=== PATIENT | male | born 1950 | race Caucasian/White ===

== ENCOUNTER 2020-04-23 21:12 | Inpatient (IN) | payer MEDICARE, BC, OTHER ==
[~2020-04-23 21:12] MED LIST: Iopamidol-370 76% 500 ML 1 ML ONE
[2020-04-23 21:29] LABS: #Eosinphils 0.1 thou/uL (0.0-0.7); #Lymphocytes 1.6 thou/uL (1.20-3.40); #Monocytes 0.9 thou/uL (0.11-0.59); #Neutrophils 14.1 thou/uL (1.40-6.50); %Basophils 0.1 % (0.0-1.0); %Eosinophils 0.4 % (0.0-10.0); %Lymphocytes 9.5 % (21.0-51.0); %Monocytes 5.4 % (0.0-10.0); %Neutrophils 84.6 % (42.0-75.0); Hemoglobin 14.9 g/dL (14.0-18.0); Mean Corpuscular HGB CONC 33.3 g/dL (32.0-36.0); Mean Platelet Volume 7.4 fL (7.4-10.4); Platelet Count 313 thou/uL (130-400); RBC Distribution Width 12.8 % (11.5-14.5); Red Blood Cell (RBC) Count 4.98 mill/uL (4.70-6.10); White Blood Cell (WBC) Count 16.6 thou/uL (4.8-10.8)
--- NOTE | 2020-04-23 21:47 | RAD ---
PORTABLE CHEST: 04/23/20 PROVIDED CLINICAL HISTORY: Chest pain. FINDINGS: No comparisons. Cardiac silhouette appears prominent, which may be at least partially on the basis of portable techni que. No focal consolidation, pleural fluid or pneumothorax apparent. IMPRESSION: No evidence for an acute cardiopulmonary process. POS: JUANY
[2020-04-23 21:49] LABS: ALT (SGPT) 61 U/L (8-55); AST (SGOT) 90 U/L (5-34); Albumin 4.4 g/dL (3.4-4.8); Alkaline Phosphatase 92 U/L (40-110); Anion Gap 21 mmol/L (10-20); BUN (Urea Nitrogen) 14 mg/dL (8.4-25.7); Bilirubin, Total 1.1 mg/dL (0.2-1.2); Calc. Creatinine Clearance 0 mL/min (70-130); Calcium 8.7 mg/dL (7.8-10.44); Carbon Dioxide 19 mmol/L (23-31); Chloride 103 mmol/L (98-107); Estimated GFR-MDRD 57; Globulin 2.9 g/dL (2.4-3.5); Glucose 202 mg/dL (80-115); Protein, Total 7.3 g/dL (5.8-8.1); Sodium 139 mmol/L (136-145)
[2020-04-23] MEDS ORDERED: Morphine 4 MG/ML VIAL ONE (23:42)
[2020-04-24] MEDS ORDERED: Piperacillin/Tazobactam 4.5 GM VIAL ONE (01:14)
[2020-04-24 01:20] LABS: Troponin I 0.018 ng/mL (< 0.028)
[2020-04-24 03:28] VITALS: BMI 38.8
[2020-04-24] MEDS ORDERED: Ondansetron PF 4 MG/2 ML Vial IVP PRN ×2 (03:34→10:06)
[2020-04-24] MEDS ORDERED: Ondansetron ODT 4 MG TAB SL PRN (03:34)
[2020-04-24] MEDS ORDERED: Morphine 4 MG/ML VIAL SLOW IVP PRN (03:35)
[2020-04-24] MEDS: Sodium Chloride 0.9% 1,000 ML IV SCH ×2 (03:51→12:01)
[2020-04-24 04:54] LABS: Troponin I 0.033 ng/mL (< 0.028)
--- NOTE | 2020-04-24 07:27 | CT ---
CT ANGIOGRAM CHEST AND ABDOMEN WITH IV CONTRAST AND 3D MIP RECONSTRUCTIONS: Date: 04/23/2020 PROVIDED CLINICAL HISTORY: Chest and back pain. FINDINGS: The heart, pericardium, and great vessels demonstrate an unremarkable CT appearance. There is no evid ence for aortic dissection. The pulmonary arterial system appears normally opacified proximally. The lungs are free of significant opacity. The lung apices are not included. There are nonobstructing calculi involving the left kidney, largest measuring about 4.0 mm in the mid portion. There is moderate gallbladder distention without overt pericholecystic inflammatory change. The visualized portions of the appendix appear normal. There is no bowel dilatation, inflammatory fa t stranding, free fluid, or free air apparent within the abdomen. The abdominal aorta is nonaneurysma l. The renal and mesenteric vessels appear normally opacified. The osseous structures demonstrate no concerning lytic or blastic lesions. IMPRESSION: 1. No evidence for aortic dissection. 2. Moderate gallbladder distention without overt pericholecystic inflammatory change. 3. Nonobstructing left renal calculi. POS: JUANY
[2020-04-24] MEDS ORDERED: Piperacillin/Tazobactam 3.375 GM in Sodium Chloride 0.9% 100 ML IVPB SCH (08:00)
--- NOTE | 2020-04-24 08:34 | ULT ---
PRELIMINARY REPORT/[facility]/EMERGENCY AFTER HOURS PROCEDURE Receipt of this report by the clinical staff was confirmed with Dr. Paris MD by Loiuse Olson on A 2019 01:20:00 CDT. Addendum electronically signed by Louise Olson on April 24, 2020 1:20:44 AM CDT EXAM: US Abdomen Limited, Right Upper Quadrant. CLINICAL HISTORY: HX: ABD PAIN. SEE NOTES ON LAST IMAGE. THANKS TECHNIQUE: Real-time ultrasound of the right upper quadrant with image documentation. COMPARISON: None provided. FINDINGS: LIVER: Demonstrates increased echogenicity however is poorly visualized. GALLBLADDER: Cholelithiasis and sludge is noted with wall thickening at 7 mm along with pericholecystic fluid. Th e patient demonstrated a positive sonographic Rivers's sign COMMON BILE DUCT: No dilation. Measures 4.1 mm PANCREAS: Obscured by overlying bowel gas. RIGHT KIDNEY: No hydronephrosis. Measures 10.7 cm and demonstrates trace perinephric fluid IMPRESSION: The findings are consistent with acute cholecystitis ELECTRONICALLY SIGNED BY: Juan Geronimo MD Apr 24, 2020 1:12:08 AM CDT This report is intended for review by the ordering physician only, in accordance of law. If you recei ve this report in error, please call [facility] at [phone]. FINAL REPORT EXAM: US Gallbladder RUQ CLINICAL HISTORY: Epigastric pain. Elevated transaminases.. COMPARISON: None. FINDINGS: Pancreas: Obscured by bowel gas Liver:Heterogeneous echotexture which limits evaluation for hepatic masses and intrahepatic biliary d ilatation. Gallbladder: Cholelithiasis and sludge. Pericholecystic fluid. Gallbladder wall thickening. Rivers's sign:Positive Portal Vein: Patent. Appropriate directional flow Bile ducts: 0.4 cm common bile duct diameter Right kidney: No hydronephrosis. There is right renal cortical thinning. Right kidney measures 10.8 c m in length. IMPRESSION: 1. Sonographic evidence of cholelithiasis with sonographic evidence of acute cholecystitis. 2. Heterogeneous echotexture of liver likely due to hepatic steatosis or hepatocellular disease. This report is in agreement with initial report by [facility]. Transcribed Date/Time: 04/24/2020 8:57 AM
[2020-04-24] MEDS ORDERED: Morphine 2 MG/ML VIAL SLOW IVP PRN (10:06)
[2020-04-24 13:47] LABS: SARS-CoV-2 MS2 Positive; SARS-CoV-2 N Gene Negative; SARS-CoV-2 S Gene Negative; SARS-CoV-2 by NAA Not Detected (NotDetected); SARS-CoV-2 orf1ab Negative
[2020-04-24] MEDS: Piperacillin/Tazobactam 3.375 GM in Sodium Chloride 0.9% 100 ML IVPB SCH ×2 (14:44→20:44)
[2020-04-24] MEDS ORDERED: hydrALAZINE 20 MG/ML VIAL SLOW IVP PRN (15:10)
[2020-04-24 16:44] LABS: Hemoglobin A1c 6.4 % (4.0-6.0)
[2020-04-24] MEDS: Carvedilol 3.125 MG TAB PO SCH (17:26)
[2020-04-24 18:35] LABS: Troponin I 0.028 ng/mL (< 0.028)
[2020-04-24] MEDS: D5 1/2 NS w/20 mEq KCL 1,000 ML IV SCH (20:43)
[2020-04-24] MEDS: Atorvastatin Calcium 40 MG TAB PO SCH (20:43)
--- NOTE | 2020-04-24 20:44 | CON ---
DATE OF CONSULTATION: 04/24/2020 PRIMARY CARE PHYSICIAN: The patient currently does not have a primary care physician. REASON FOR ADMISSION: Biliary colic and acute cholecystitis. REASON FOR CONSULTATION: Elevated troponin. HISTORY OF PRESENT ILLNESS: Mr. Huddleston is a pleasant 69-year-old gentleman, who has a history of hypertension, elevated cholesterol, and hypothyroidism. He was in his usual state of health until last night. He was lying down watching TV, when he suddenly got a pain or pressure in the epigastric region and radiated across. He does not know if there is any associated symptoms because he says he gets sweaty a lot, but he did have some nausea and vomiting as well. He came to the ER for evaluation, where it was felt that his symptoms were related to possible gallbladder disease. A CT of the chest was done to rule out dissection and an abdominal ultrasound that had findings suggestive of cholecystitis. He is being admitted to the Surgery Service and we were consulted to evaluate an elevated troponin that he had. The patient denies any chest pain. He says that he is relatively active and does not have any dyspnea or shortness of breath. He denies any PND, no orthopnea, no lower extremity edema, except when he is working. But, he has not had routine medical care and he has never had an evaluation for his heart. REVIEW OF SYSTEMS: All systems are reviewed and are negative except for that mentioned in the history of present illness. PAST MEDICAL HISTORY: Significant for hypertension, elevated cholesterol, and hypothyroidism. PAST SURGICAL HISTORY: He has had a thyroidectomy in 2008. ALLERGIES: NO KNOWN DRUG ALLERGIES. SOCIAL HISTORY: He is a former smoker, he quit in 1970. He is and has one child. Prior to him quitting smoking, he only smokes a few cigarettes prior to quitting. FAMILY HISTORY: He does not know his father's history well other than cirrhosis. His grandfather had heart disease. USUAL MEDICATIONS: Include; 1. Levothyroxine 125 mcg daily. 2. Lipitor 40 mg daily. 3. Lisinopril 20 mg p.o. daily. PHYSICAL EXAMINATION: GENERAL: He is alert and oriented. He is morbidly obese. VITAL SIGNS: Blood pressure was 186/97, heart rate 77, respiratory rate of 18, temperature is 98.2, and O2 saturation is 95% on room air. HEENT: Pupils are equal, round, and reactive to light. Extraocular muscles are intact. Sclerae anicteric. Throat, no erythema, no exudates. NECK: No adenopathy. No bruits. LUNGS: Clear to auscultation. There is no wheezing. No rales. No rhonchi. CARDIOVASCULAR: He had a normal S1 and S2. There is no S3 or S4. He did have a very faint grade 2/6 short systolic murmur. No radiation. ABDOMEN: Obese. It is soft, nontender, and nondistended. Positive for bowel sounds. No rebound. No guarding. No organomegaly. EXTREMITIES: On his extremities, he has some mild ankle edema. No calf tenderness. No joint effusions. NEUROLOGIC: Nonfocal. SKIN AND INTEGUMENT: No skin changes. No rash. LABORATORY DATA: Lab results were reviewed and these were from 04/23. His glucose was elevated at 202. He had a troponin today that reached 0.033. The white blood cell count was 16.6 on yesterday. Hemoglobin and hematocrit were normal. Rapid COVID screen negative. Chest x-ray and CTA and ultrasound were reviewed. ASSESSMENT: 1. This is a pleasant 69-year-old gentleman, who is being admitted for probable acute cholecystitis. He has been started on antibiotics and IV fluids and since his symptoms have improved. However, it was noted that he did have an elevated troponin. He has a history of hypertension and high cholesterol, and given his age and body habitus, I suspect this place him at a slightly higher cardiac risk as well. For this reason, we will go ahead and get a nuclear stress test prior to him having surgery given that his hip. It appears his gallbladder has cooled down somewhat. Also would like to get an echo to assess the murmur, but he has refused this and almost refuse having the stress test done. I have conveyed this to Dr. Maxwell. 2. Elevated glucose. He could have an undiagnosed diabetes mellitus. We will check a hemoglobin A1c in the a.m. as well as a fasting blood glucose. However, in acute illness, it is very difficult to screen for diabetes and this will likely need to be done as outpatient. 3. History of hypothyroidism. We will go ahead and restart his home medications. 4. Dyslipidemia. We will check a fasting lipid panel in the a.m. Job ID: [id number]
[2020-04-24 21:33] LABS: Troponin I 0.024 ng/mL (< 0.028)
[2020-04-24] MEDS ORDERED: Fluticasone Propionate Nasal Spray 16 gm Bottle NASAL SCH (22:00)
[2020-04-25] MEDS ORDERED: Sodium Chloride 0.65% Nasal 44 ML BOT EA NARE PRN (00:30)
[2020-04-25] MEDS: Piperacillin/Tazobactam 3.375 GM in Sodium Chloride 0.9% 100 ML IVPB SCH ×4 (01:19→22:39)
--- NOTE | 2020-04-25 03:01 | HP ---
CHIEF COMPLAINT: Abdominal pain. HISTORY OF PRESENT ILLNESS: Mr. Huddleston is a 69-year-old man who presented to the emergency room with a several hour history of severe epigastric pain radiating across his upper abdomen and into his chest. He has some mild shortness of breath and several episodes of vomiting and was diaphoretic. He was brought in by EMS. They gave him sublingual nitroglycerin and aspirin with mild improvement in his symptoms en route. He states that he has not had an episode of pain similar to this in the past. By the time I saw him on morning rounds, he states that the pain has resolved. He was unable to identify a triggering event and nothing that he tried at home was helping. The pain did radiate to his back. He did not have any fevers or chills. Workup in the emergency room showed no acute ST changes and low troponins initially, but his third troponin was mildly elevated in the indeterminate range. He was noted to have an elevated white count on admission and mild elevation of AST and ALT and imaging including a CT dissection protocol and abdominal ultrasound showed distention of the gallbladder and gallstones. The patient was admitted and Hospitalist Service was consulted and the decision was made to proceed with risk stratification with stress testing. The patient is currently comfortable without recurrence of his nausea or abdominal or chest pain. PAST MEDICAL HISTORY: Obesity, back pain, hypertension, hypothyroidism, hyperlipidemia, his glucose was elevated on admission and hemoglobin A1c is slightly elevated at 6.4. PAST SURGICAL HISTORY: Thyroidectomy. SOCIAL HISTORY: The patient does not smoke, drink, or use illicit drugs. He has no known drug allergies. OUTPATIENT MEDICATIONS: Include Synthroid, Lipitor, and lisinopril. REVIEW OF SYSTEMS: Ten system review of systems is negative except per HPI. The patient specifically denies shortness of breath, cough, runny nose, or sore throat. PHYSICAL EXAMINATION: VITAL SIGNS: The patient had a low-grade fever overnight, heart rate 77, respirations 18, 95% saturated on room air, and blood pressure 186/97. GENERAL: Reveals an obese gentleman, in no acute distress. HEENT: Unremarkable. Pupils are equal, and extraocular movements are intact. NECK: Supple without lymphadenopathy or thyroid nodules. HEART: Regular in its rate and rhythm without murmurs, rubs, or gallops. LUNGS: Clear to auscultation bilaterally. ABDOMEN: Soft and nondistended. He has mild tenderness to palpation to right upper quadrant, but no rigidity, rebound, or guarding. No palpable masses or hernias. EXTREMITIES: Warm and well perfused without edema. NEURO: No focal deficits. PSYCHIATRIC: Alert, oriented, and appropriate. LABORATORY DATA: White count is elevated at 16,000 with a left shift, hematocrit 44, and platelets 313. Electrolytes are unremarkable. BNP and troponin are mildly elevated. Glucose is elevated at 202. AST and ALT are [address] and ultrasound images are reviewed and I agree with the written report. The patient's gallbladder appears thickened with some pericholecystic edema. He has stones in the gallbladder, but the common bile duct looks normal caliber. ASSESSMENT: Cholelithiasis and choledocholithiasis. The patient appears to have multiple medical problems, which are not well managed and he has an indeterminate troponin with multiple risk factors for coronary artery disease. The hospitalist has recommended risk stratification with stress testing and has been ordered. We will await these results before deciding whether to proceed with laparoscopic cholecystectomy. Currently, he is not septic and fairly comfortable and I will allow clear liquids today and make him n.p.o. tomorrow for anticipated OR. The patient's diagnosis and recommended treatment were discussed with him. He understands and accepts the recommendations and all of his questions were answered including reviewing the images from his CT and ultrasound with him. We did discuss the surgery in detail. Inherent risks of surgery were discussed. These include, but are not limited to, bleeding, infection, risks of anesthesia, damage to nearby structures including bowel, liver, and bile duct, need for additional procedures and need for open surgery. He understands and accepts these risks and wishes to proceed. We will await cardiac clearance, which I anticipate will be back by tomorrow. If he has evidence of reversible ischemia, then of course, Cardiology will be involved as well. In the meantime, we are treating his cholecystitis with Zosyn and beta kelly has been started due to inadequate control of his blood pressure. Job ID: [id number]
[2020-04-25 05:52] LABS: #Eosinphils 0.1 thou/uL (0.0-0.7); #Lymphocytes 1.2 thou/uL (1.20-3.40); #Monocytes 0.8 thou/uL (0.11-0.59); #Neutrophils 6.1 thou/uL (1.40-6.50); %Basophils 0.2 % (0.0-1.0); %Eosinophils 0.9 % (0.0-10.0); %Lymphocytes 14.6 % (21.0-51.0); %Monocytes 9.9 % (0.0-10.0); %Neutrophils 74.4 % (42.0-75.0); Hemoglobin 12.4 g/dL (14.0-18.0); Mean Corpuscular HGB CONC 33.2 g/dL (32.0-36.0); Mean Corpuscular Hemoglobin 30.1 pg (27.0-31.0); Mean Corpuscular Volume 90.6 fL (78.0-98.0); Mean Platelet Volume 7.1 fL (7.4-10.4); Platelet Count 224 thou/uL (130-400); RBC Distribution Width 12.8 % (11.5-14.5); Red Blood Cell (RBC) Count 4.11 mill/uL (4.70-6.10); White Blood Cell (WBC) Count 8.2 thou/uL (4.8-10.8)
[2020-04-25] MEDS: Levothyroxine Sodium 125 MCG TAB PO SCH (06:08)
[2020-04-25] MEDS: Carvedilol 3.125 MG TAB PO SCH ×2 (06:14→17:14)
[2020-04-25] MEDS: D5 1/2 NS w/20 mEq KCL 1,000 ML IV SCH ×3 (06:14→18:52)
[2020-04-25 06:17] LABS: ALT (SGPT) 113 U/L (8-55); AST (SGOT) 74 U/L (5-34); Albumin 3.5 g/dL (3.4-4.8); Alkaline Phosphatase 70 U/L (40-110); Anion Gap 9 mmol/L (10-20); BUN (Urea Nitrogen) 11 mg/dL (8.4-25.7); Bilirubin, Total 1.4 mg/dL (0.2-1.2); Calc. Creatinine Clearance 111 mL/min (70-130); Calcium 7.9 mg/dL (7.8-10.44); Carbon Dioxide 27 mmol/L (23-31); Cardiac Risk 3.5 (Less than 4.5); Chloride 104 mmol/L (98-107); Cholesterol 130 mg/dl (< 200 Desired); Estimated GFR-MDRD 62; Globulin 2.8 g/dL (2.4-3.5); Glucose 145 mg/dL (80-115); HDL Cholesterol 37 mg/dL (>60 Neg Risk); LDL Cholesterol, Calculated 81 mg/dL; Potassium 3.9 mmol/L (3.5-5.1); Protein, Total 6.3 g/dL (5.8-8.1); Sodium 136 mmol/L (136-145); Triglycerides 58 mg/dL (Less than 150)
[2020-04-25 06:48] LABS: Free T4 (Free Thyroxine) 0.91 ng/dL (0.70-1.48); Thyroid Stimulating Hormone 0.2484 uIU/mL (0.35-4.94)
[2020-04-25] MEDS: Fluticasone Propionate Nasal Spray 16 gm Bottle NASAL SCH (10:12)
[2020-04-25] MEDS ORDERED: Glycopyrrolate 0.2 MG/ML 5 ML SYRINGE ONE (10:37)
[2020-04-25] MEDS ORDERED: Lidocaine 1% PF 5 ML VIAL ONE (10:37)
[2020-04-25] MEDS ORDERED: Rocuronium Bromide 10 MG/ML (10ML VIAL) ONE (10:37)
[2020-04-25] MEDS ORDERED: Ketorolac Tromethamine 30 MG/ML VIAL ONE (10:37)
[2020-04-25] MEDS ORDERED: Labetalol HCl 100 MG/20 ML VIAL ONE (10:37)
[2020-04-25] MEDS ORDERED: PROPOFOL 200 MG/20 ML VIAL ONE (10:37)
[2020-04-25] MEDS ORDERED: Dexamethasone 20 MG/5 ML VIAL ONE (10:37)
[2020-04-25] MEDS ORDERED: Ondansetron PF 4 MG/2 ML Vial ONE (10:37)
--- NOTE | 2020-04-25 12:29 | PDOC.GSPN ---
Surgery Progress Note: Subj - Subjective Narrative: Patient refused to go down for his stress test this morning. He says that he is feeling better and not having any nausea or pain and he just wants to have the surgery. I came to talk to him about the stress test and explained the reasoning for ordering this. He had indeterminate troponins and some abnormal although nonspecific findings on his EKG, and given his medical comorbidities I explained that we are concerned that he could have occult coronary artery disease which would put him at risk for perioperative DE. He initially stated that he is "living on borrowed time" and that he wants to "take my chances", but I explained that this is not an appropriate approach to perioperative risk. He related a story about his grandfather having a perforated colon and having to have emergency surgery despite high cardiac risks. I explained that his acute cholecystitis has responded to antibiotics and that laparoscopic cholecystectomy is to prevent future episodes and complications of gallstone disease, but he does not need emergent surgery like he would if he had a bowel perforation. I explained that if he did have an abnormal stress test I would recommend medical management of his cholecystitis while he underwent treatment of his cardiac disease. He states that he had a stress test before he had his thyroidectomy in 2008, but I explained that that is basically irrelevant at this time since so much time has elapsed. I offered him the option of medical management of his cholecystitis with oral antibiotics and discharge home, understanding that he could have future episodes and that if he does return with repeat episodes we would still recommend a cardiac work-up before surgery. He then demanded to see any images that were obtained if he underwent a stress test, and I explained that I could certainly pull these up on the computer and show them to him but that I am not qualified to interpret them, nor can I guarantee that a radiologist or construction electrician will be willing to interpret them for him at the bedside, but that his images would be read by a professional who is trained in the interpretation of the images and that I would be happy to go over the report with him. 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 The patient ultimately decided to proceed with the stress testing. He states that after the test he will decide what he wants to do next. We will await the stress test results and the patient's decision. In the meantime we will continue medical management of his cholecystitis. Surgery Progress Note: Obj - Vital signs Vital signs: Vital Signs - Most Recent Temp Pulse Resp BP Pulse Ox 98.4 F 56 L 14 136/81 95 04/25/20 07:43 04/25/20 07:43 04/25/20 07:43 04/25/20 07:43 04/25/20 07:43 Surgery Progress Note: Results - Labs Result Diagrams: 04/25/20 05:18 04/25/20 05:18 Lab results: Laboratory Results - last 24 hr 04/25/20 04/25/20 04/25/20 05:18 05:18 05:18 WBC 8.2 RBC 4.11 L Hgb 12.4 L Hct 37.2 L MCV 90.6 MCH 30.1 MCHC 33.2 RDW 12.8 Plt Count 224 MPV 7.1 L Neutrophils % 74.4 Lymphocytes % 14.6 L Monocytes % 9.9 Eosinophils % 0.9 Basophils % 0.2 Neutrophils # 6.1 Lymphocytes # 1.2 Monocytes # 0.8 H Eosinophils # 0.1 Basophils # 0.0 Sodium 136 Potassium 3.9 Chloride 104 Carbon Dioxide 27 Anion Gap 9 L BUN 11 Creatinine 1.16 Estimated GFR (MDRD) 62 Glucose 145 H Calcium 7.9 Total Bilirubin 1.4 H AST 74 H ALT 113 H Alkaline Phosphatase 70 Serum Total Protein 6.3 Albumin 3.5 Globulin 2.8 Albumin/Globulin Ratio 1.3 Triglycerides 58 Cholesterol 130 LDL Cholesterol, Calc 81 HDL Cholesterol 37 Heart Disease Risk Ratio 3.5 Free T4 0.91 TSH 3rd Generation 0.2484 L
--- NOTE | 2020-04-25 14:38 | NM ---
Radionucleotide stress and rest myocardial perfusion scan with CT attenuation correction and SPECT im aging Left ventricular wall motion evaluation and ejection fraction HISTORY: Chest pain. FINDINGS: Adenosine protocol. Heterogeneous uptake of radiotracer throughout the left ventricular myocardium on both the stress and rest images. No focal perfusion defect evident. No reversibility. QGS analysis of gated SPECT imaging shows no focal wall motion abnormalities. Ejection fraction calcu lated at 52%. IMPRESSION : No evidence of ischemia. Borderline LVEF 52%.
--- NOTE | 2020-04-25 17:51 | EKG ---
Test Reason : Blood Pressure : / mmHG Vent. Rate : 072 BPM Atrial Rate : 072 BPM P-R Int : 176 ms QRS Dur : 104 ms QT Int : 434 ms P-R-T Axes : 056 067 207 degrees QTc Int : 475 ms Normal sinus rhythm Prolonged QT Abnormal ECG No previous ECGs available Confirmed by LALY OWEN (2) on 04/25/2020 5:51:07 PM Referred By: VALERY Confirmed By:LALY OWEN
[2020-04-25] MEDS ORDERED: Ondansetron HCl/PF 4 MG/2 ML Vial IVP PRN (18:58)
[2020-04-25] MEDS ORDERED: Bupivacaine 0.25% HCL 30 ML VIAL ONE (19:10)
[2020-04-25] MEDS ORDERED: Iothalamate Meglumine 60% 50 ML VIAL FS ONE (19:10)
[2020-04-25] MEDS ORDERED: Lidocaine 1% w/Epinephrine 1:100K 20 ML VIAL ONE (19:10)
[2020-04-25] MEDS ORDERED: Fentanyl 100 MCG/2 ML VIAL ONE (19:16)
[2020-04-25] MEDS ORDERED: Piperacillin/Tazobactam 3.375 GM VIAL ONE (20:06)
[2020-04-25] MEDS ORDERED: Meperidine HCl/PF 25 MG/ML VIAL SLOW IVP PRN (20:32)
[2020-04-25] MEDS ORDERED: Promethazine HCl 25 MG/ML VIAL IM PRN (20:32)
[2020-04-25] MEDS ORDERED: Promethazine HCl 25 MG/ML VIAL SLOW IVP PRN (20:32)
[2020-04-25] MEDS ORDERED: HYDROmorphone 2 MG/ML VIAL SLOW IVP PRN (20:32)
[2020-04-25] MEDS ORDERED: hydrALAZINE 20 MG/ML VIAL ONE (20:49)
--- NOTE | 2020-04-25 21:24 | RAD ---
Exam: Intraprocedure fluoroscopy. Intraoperative plain Exposure: 1.8 rojas per centimeter square. FINDINGS: Single intraoperative image demonstrates opacification of the residual cystic duct, common bile duct. Contrast appears to opacify the duodenum. IMPRESSION: Intraoperative fluoroscopy as above.
[2020-04-25] MEDS: Atorvastatin Calcium 40 MG TAB PO SCH ×2 (22:39→22:47)
[2020-04-25] MEDS ORDERED: HYDROcodone/Acetaminophen 5/325 mg Tablet PO PRN (22:47)
[2020-04-25] MEDS ORDERED: traMADol HCl 50 MG TAB PO PRN ×2 (22:47→22:48)
[2020-04-25] MEDS ORDERED: Ibuprofen 200 MG TAB PO PRN ×3 (22:48→22:50)
[2020-04-25] MEDS ORDERED: Acetaminophen 325 MG TAB PO PRN ×2 (22:51)
[2020-04-26] MEDS ORDERED: Cepastat Lozenges 1 LOZ PO PRN (01:30)
[2020-04-26] MEDS: Piperacillin/Tazobactam 3.375 GM in Sodium Chloride 0.9% 100 ML IVPB SCH ×2 (02:35→08:38)
[2020-04-26] MEDS: D5 1/2 NS w/20 mEq KCL 1,000 ML IV SCH (02:35)
[2020-04-26] MEDS: Levothyroxine Sodium 125 MCG TAB PO SCH (05:58)
[2020-04-26] MEDS: Carvedilol 3.125 MG TAB PO SCH (08:38)
[2020-04-26] MEDS: Fluticasone Propionate Nasal Spray 16 gm Bottle NASAL SCH (08:39)
[2020-04-26] MEDS ORDERED: Tamsulosin HCl 0.4 MG CAP PO SCH (09:30)
[2020-04-26 12:33] LABS: #Lymphocytes 0.7 thou/uL (1.20-3.40); #Monocytes 0.9 thou/uL (0.11-0.59); #Neutrophils 10.8 thou/uL (1.40-6.50); %Eosinophils 0.1 % (0.0-10.0); %Lymphocytes 5.9 % (21.0-51.0); %Monocytes 7.2 % (0.0-10.0); %Neutrophils 86.7 % (42.0-75.0); Hemoglobin 12.7 g/dL (14.0-18.0); Mean Corpuscular HGB CONC 33.3 g/dL (32.0-36.0); Mean Corpuscular Hemoglobin 29.9 pg (27.0-31.0); Mean Corpuscular Volume 89.9 fL (78.0-98.0); Mean Platelet Volume 7.4 fL (7.4-10.4); Platelet Count 263 thou/uL (130-400); RBC Distribution Width 12.6 % (11.5-14.5); Red Blood Cell (RBC) Count 4.25 mill/uL (4.70-6.10); White Blood Cell (WBC) Count 12.5 thou/uL (4.8-10.8)
[2020-04-26 12:37] LABS: Anion Gap 15 mmol/L (10-20); BUN (Urea Nitrogen) 12 mg/dL (8.4-25.7); Calc. Creatinine Clearance 111 mL/min (70-130); Calcium 7.8 mg/dL (7.8-10.44); Carbon Dioxide 21 mmol/L (23-31); Chloride 106 mmol/L (98-107); Estimated GFR-MDRD 62; Glucose 96 mg/dL (80-115); Potassium 4.1 mmol/L (3.5-5.1); Sodium 138 mmol/L (136-145)
--- NOTE | 2020-04-26 13:31 | PDOC.HOSPP ---
- Subjective Encounter Date: 04/26/20 Encounter Time: 13:27 Subjective: Mr. Huddleston was seen today in follow-up of Cholecystitis. He does not have any new complaints. - Objective Vital Signs & Weight: Vital Signs (12 hours) Temp Pulse Resp BP Pulse Ox 04/26/20 11:56 98 F 55 L 18 168/70 H 98 04/26/20 08:15 98 F 04/26/20 07:54 98 F 60 18 155/87 H 93 L 04/26/20 03:27 97.6 F 62 16 122/64 94 L Weight Weight 286 lb 9.615 oz I&O: 04/25/20 04/26/20 04/27/20 06:59 06:59 06:59 Intake Total 1680 1870 Output Total 656 Balance 1680 1214 Result Diagrams: 04/26/20 12:09 04/26/20 12:09 Hospitalist ROS - Medication Medications: Active Medications Generic Name Dose Route Start Last Admin Trade Name Freq PRN Reason Stop Dose Admin Atorvastatin Calcium 40 mg 04/24/20 21:00 04/25/20 22:47 Lipitor PO Not Given HS YAKELIN Carvedilol 3.125 mg 04/24/20 17:00 04/26/20 08:38 Coreg PO 3.125 mg BID-WM YAKELIN Administration Fluticasone Propionate 0 gm 04/25/20 09:00 04/26/20 08:39 Flonase Nasal [place] NASAL Not Given DAILY YAKELIN Piperacillin Sod/Tazobactam 100 mls @ 200 mls/hr 04/24/20 14:00 04/26/20 08: 38 Sod 3.375 gm/ Sodium Chloride IVPB 100 mls Q6H YAKELIN Administration Potassium Chloride/Dextrose/Sod Cl 1,000 mls @ 60 mls/hr 04/25/20 17:38 04/26 02:35 D5 1/2 Ns W/20 Meq Kcl IV 1,000 mls .[id number] YAKELIN Administration Levothyroxine Sodium 125 mcg 04/25/20 06:00 04/26/20 05:58 Synthroid PO 125 mcg 0600 YAKELIN Administration Sodium Chloride 1 ml 04/25/20 00:30 04/25/20 01:19 [place] Nasal [place] 0.65% EA NARE 1 spray TID PRN Administration Nasal Congestion Throat Lozenges 1 miguel 04/26/20 01:30 04/26/20 02:36 Cepastat Lozenges PO 1 miguel Q2H PRN Administration Sore Throat - Exam Eye: PERRL, anicteric sclera Heart: RRR, no murmur, no gallops, no rubs, normal peripheral pulses Respiratory: CTAB, no wheezes, no rales, no ronchi, normal chest expansion Gastrointestinal: soft, normal bowel sounds Extremities: no edema Hosp A/P (1) Cholecystitis, acute Code(s): K81.0 - ACUTE CHOLECYSTITIS Status: Acute (2) Obesity (BMI 30-39.9) Code(s): E66.9 - OBESITY, UNSPECIFIED Status: Acute (3) Hypertension Code(s): I10 - ESSENTIAL (PRIMARY) HYPERTENSION Status: Chronic (4) Hypothyroidism Code(s): E03.9 - HYPOTHYROIDISM, UNSPECIFIED Status: Chronic (5) Prediabetes Code(s): R73.03 - PREDIABETES Status: Chronic - Plan * Acute Cholecystitis- he is s/p lap sonali and stable * HTN - will re-start his home medications * Pre-diabetes- discussed with the patient. His glucose is elevated- but likely as a result of the stress for infection. He needs to adhere to low carbohydrate diet, and loose some weight, and have his primary [place] physician re -screen him for diabetes * Hypothyroidism- clinically stable- continue his home medications
[2020-04-26 15:42] VITALS: BP 156/90; TEMP 97.6
--- NOTE | 2020-04-26 16:31 | PDOC.EVN ---
Event Note - Event Note Event Note: Pt w urinary retention, PVR 600 ml or higher, refused FC or instruction on CIC. Leaving AMA. Contact information given for follow up.
[2020-04-27] MEDS ORDERED: Tamsulosin HCl 0.4 MG CAP PO SCH (09:00)
--- NOTE | 2020-04-27 14:06 | OP ---
DATE OF PROCEDURE: 04/25/2020 PROCEDURE PERFORMED: Laparoscopic cholecystectomy with intraoperative cholangiogram. PREOPERATIVE DIAGNOSES: Cholelithiasis and cholecystitis. POSTOPERATIVE DIAGNOSES: Cholelithiasis and cholecystitis. FINDINGS: Massively distended gallbladder with omental adhesions, which appeared chronic. Gallbladder was unhealthy in appearance and tore with retraction. Multiple small stones. Normal intraoperative cholangiogram. HISTORY: Mr. Huddleston is a 69-year-old man, who presented to the emergency room with epigastric pain and was found to have evidence of cholelithiasis and cholecystitis. Cardiac workup was negative including a stress test. He now presents for laparoscopic cholecystectomy with intraoperative cholangiogram due to mild elevation of his LFTs. DESCRIPTION OF PROCEDURE: After informed consent was obtained and appropriate preoperative antibiotics were administered, the patient was taken to the operating room. He was placed in supine position and general endotracheal anesthesia was administered. He was prepped and draped in a standard sterile fashion, and local anesthesia infused through skin and subcutaneous tissues at the level of the umbilicus. A transverse incision was made and the fascia was elevated and a Veress needle placed into the abdominal cavity without difficulty. Opening pressure was less than 5 and carbon dioxide gas insufflated to an intraabdominal pressure of 15, which was tolerated well. Local anesthesia was infused through skin and subcutaneous tissues at the epigastric, right upper quadrant, and right lateral abdominal sites, and skin incisions were made. Trocars were placed under direct laparoscopic vision and the gallbladder examined. This was initially obscured by omentum, but a clear space in the fundus was able to be identified, and grasped and retracted superiorly. The fundus of the gallbladder tore just with retraction. The omental adhesions were able to be taken down through the avascular plane and the infundibulum identified, grasped and retracted laterally. The serosa was stripped inferiorly at the level of the neck of the gallbladder, and the cystic duct and artery identified and traced clearly to their insertion in the gallbladder. A critical view of safety was obtained. The cystic artery was clipped and divided between clips and the cystic duct was clipped at the level of the neck of the gallbladder and an incision made inferior to this. Clear bile was seen to extrude from the cystic duct and there were no stones palpable in the cystic duct. The cholangiogram catheter was inserted into the cystic duct and secured, and a cholangiogram obtained. This showed a good length of cystic duct with normal filling of the common hepatic duct back to the bifurcation and normal flow of contrast to the common bile duct and down into the duodenum without filling defects or obstruction to flow. The cholangiogram catheter and securing clip were removed and the cystic duct was clipped x2 below the incision in the cystic duct and divided between this in the upper clip. The gallbladder was then dissected free of the gallbladder bed using hook electrocautery. Prior to complete removal of the gallbladder from the gallbladder bed, the operative site was examined and hemostasis was verified. The clips were seen to be in good position completely across both cystic duct and artery. The gallbladder was then completely removed from the gallbladder bed, placed into an EndoCatch bag and drawn out through the epigastric incision. Per the patient's request, several small gallstones removed from the gallbladder and placed in a sterile container for him. The remainder of the gallbladder and its contents were sent to Pathology for review. The operative site was easily irrigated to clear and hemostasis was again verified. The epigastric trocar was removed and the fascial defect was closed with a 0 Vicryl suture on a GraNee needle with excellent technical result. The right upper quadrant and right lateral trocars were then removed and hemostasis verified. The umbilical trocar was used to desufflate the abdomen, following which, this trocar was removed as well. The skin incisions were closed with 4-0 subcuticular Monocryl sutures and Dermabond dressings were applied. The patient was then extubated and taken to Recovery in good condition. ESTIMATED BLOOD LOSS: Minimal. COMPLICATIONS: There were no complications. SPECIMEN: Gallbladder and contents. Job ID: [id number]
--- NOTE | 2020-05-07 16:36 | EKG ---
Test Reason : CP Blood Pressure : / mmHG Vent. Rate : 091 BPM Atrial Rate : 091 BPM P-R Int : 166 ms QRS Dur : 086 ms QT Int : 412 ms P-R-T Axes : 029 035 131 degrees QTc Int : 506 ms Normal sinus rhythm Prolonged QT Abnormal ECG Confirmed by JOSE MENDOZA ([id number]), makeup editor ROSEMARY RANGEL ([id number]) on 05/07/2020 4:35:31 PM Referred By: Confirmed By:JOSE MENDOZA
== END 2020-04-26 17:20 | disposition left against medical advice (07) | DRG 419 ==
LOC: ERS 21:12 → EDBD 21:12 → SURG A 04-24 01:39
PROVIDERS: ADMIT Surgery; ATTEND Surgery
PROC: 0FT44ZZ Resection of Gallbladder, Percutaneous Endoscopic Approach (ICD-10-PCS; principal; 2020-04-25)
PROC: BF13YZZ Fluoroscopy of Gallbladder and Bile Ducts using Other Contrast (ICD-10-PCS; 2020-04-25)
DX: K80.62 Calculus of gallbladder and bile duct with acute cholecystitis without obstruction (principal); Z20.828 Contact with and (suspected) exposure to other viral communicable diseases; E66.9 Obesity, unspecified; I10 Essential (primary) hypertension; E03.9 Hypothyroidism, unspecified; E78.5 Hyperlipidemia, unspecified; K66.0 Peritoneal adhesions (postprocedural) (postinfection); R73.03 Prediabetes; R74.0 Nonspecific elevation of levels of transaminase and lactic acid dehydrogenase [LDH]; R33.9 Retention of urine, unspecified; Z90.89 Acquired absence of other organs; Z68.38 Body mass index [BMI] 38.0-38.9, adult; Z87.891 Personal history of nicotine dependence
CPT/HCPCS: 36415; 47532; 71045; 71275; 72191; 74175; 76705; 78452; 80048; 80053; 80061; 83036; 83690; 83880; 84439; 84443; 84484; 85025; 87635; 88304; 93005; 93010; 93017; 94760; 96365; 96375; A9500; J0153; J0360; J1100; J1610; J1885; J2270; J2405; J2543; J2704; J3010; J3480; J3490; Q9967; S0020; U0003